=== PATIENT | female | born 1960 | race Caucasian/White ===

== ENCOUNTER → 2016-06-23 | Outpatient (CLI) | payer OTHER ==
[~2016-06-23] MED LIST: ACET500C OR; ALBUTEROL INH; CALC500T49 OR; IBUP400T OR; MOTR200T4 PO; MULTIVIT OR; SUPETAB27 OR; VALS40TA OR; VITAMIN B COMPLE1 OR; VITAMIN D50000 UNT OR; ZANA4CAP OR; [UNRECOGNIZED DRUG - OTHER] PO; super b complex OR
== END ==
LOC: M LAB 11:48
PROVIDERS: ATTEND Physician Assistant
DX: N20.0 Calculus of kidney (principal)

== ENCOUNTER → 2017-10-26 | Outpatient (REF) | payer OTHER | LOC: M SFHCLERA 14:36 | DX: R53.81 Other malaise (principal) ==

== ENCOUNTER → 2019-03-11 | Outpatient (REF) | payer OTHER, SELFPAY | LOC: M SFHCLERA 15:23 | PROVIDERS: ATTEND Nurse Practitioner Family | DX: R10.9 Unspecified abdominal pain (principal) ==

== ENCOUNTER → 2019-05-14 | Outpatient (CLI) | payer BC, OTHER ==
[~2019-05-14] MED LIST changes: +ISOVUE-370 76% 100ML VIAL (Q9967) As Ordered ONE
== END ==
LOC: M RAD 15:33
PROVIDERS: ATTEND Specialist
DX: R31.0 Gross hematuria (principal)
CPT/HCPCS: 74178; Q9967

== ENCOUNTER → 2019-10-13 | Outpatient (CLI) | payer BC ==
[~2019-10-13] MED LIST changes: -ISOVUE-370 76% 100ML VIAL (Q9967) As Ordered ONE
--- NOTE | 2019-10-13 11:06 | REP ---
HIDA SCAN WITH GALLBLADDER EJECTION FRACTION: Following the intravenous administration of 6.6 millicuries of technetium 99m mebrofenin, multiple images of the right upper quadrant are performed every 5 minutes for a period of 1 hour. The gallbladder is visualized at 15 minutes post injection. There is biliary to bowel transit at about 40 minutes post injection. There is no scintigraphic evidence of cholecystitis. At the 1-hour suellen, 8 ounces of Ensure Enlive is ingested and further imaging performed for 1 hour. Gallbladder activity is measured. The gallbladder ejection fraction is calculated to be 92%, which is normal. IMPRESSION: Normal gallbladder ejection fraction. Electronically Signed by Naeem Mcclure MD 10/13/2019 12:32 P
== END ==
LOC: M RAD 07:28
PROVIDERS: ATTEND Nurse Practitioner Family
DX: R10.9 Unspecified abdominal pain (principal)
CPT/HCPCS: 78227; A9537

== ENCOUNTER → 2023-07-09 | Outpatient (REF) | payer BC ==
[2023-07-09 21:21] LABS: APPEARANCE, URINE CLEAR (CLEAR); BACTERIA, URINE AUTO NEGATIVE (NEGATIVE); BILIRUBIN, URINE AUTO NEGATIVE (NEGATIVE); BLOOD, URINE BLOOD 1+ (NEGATIVE); COLOR, URINE YELLOW (YELLOW); GLUCOSE, URINE (UA) AUTO NEGATIVE (NEGATIVE); KETONE, URINE AUTO NEGATIVE (NEGATIVE); LEUKOCYTE ESTERASE, URINE AUTO NEGATIVE (NEGATIVE); NITRITE, URINE AUTO NEGATIVE (NEGATIVE); PROTEIN, URINE AUTO NEGATIVE (NEGATIVE); RBC, URINE AUTO 3 /HPF (0-3); SPECIFIC GRAVITY URINE AUTO 1.006 (1.002-1.035); SQUAMOUS EPITHELIAL CELL UR AU 0 /HPF (0-6); UROBILINOGEN, URINE AUTO 0.2 mg/dL (0.0-2.0); WBC, URINE AUTO 0 /HPF (0-3)
== END ==
LOC: M LAB REF 20:51
PROVIDERS: ATTEND Physician Assistant
DX: J20.9 Acute bronchitis, unspecified (principal)

== ENCOUNTER → 2024-12-21 | Outpatient (REF) | payer BC, MEDICARE | LOC: M LAB REF 17:33 | PROVIDERS: ATTEND Internal Medicine | DX: D64.9 Anemia, unspecified (principal) ==

== ENCOUNTER → 2025-01-31 | Outpatient (CLI) | payer MEDICARE | LOC: M RAD 11:11 | PROVIDERS: ATTEND Internal Medicine | DX: Z13.6 Encounter for screening for cardiovascular disorders (principal); F17.200 Nicotine dependence, unspecified, uncomplicated; I70.203 Unspecified atherosclerosis of native arteries of extremities, bilateral legs ==

== ENCOUNTER → 2025-05-04 | Outpatient (REF) | payer MEDICARE | LOC: M WUC 19:02 | PROVIDERS: ATTEND Physician Assistant | DX: R30.0 Dysuria (principal) ==